=== PATIENT | male | born 1950 | race Caucasian/White ===

== ENCOUNTER 2017-05-17 16:34 | Inpatient (IN) | payer MEDICARE, BC ==
[~2017-05-17] VITALS: Ht 180.3 cm; Wt 95.0 kg
[~2017-05-17 16:34] MED LIST: ALTACE 5MG5 MG PO; ASPIRIN 81M81 MG/TA2 PO; COUMADIN 5MG5 MG/TAB PO; CRESTOR40 MG PO; FISH OIL SUPER1 SGL PO; MULTI VITAMINS1 TAB PO; PEPCID 20MG TAB20 MG PO; QUESTRAN4 GM/9 GM PO; REGLAN 10MG10 MG/TAB PO; TRICOR145 MG PO; VITAMIN C PUR1000 MG PO; VITAMIN E 400 U4001 PO
[2017-05-17] MEDS ORDERED: LIPITOR 80MG80 MG PO (17:38)
[2017-05-17] MEDS ORDERED: COUMADIN 22.5 MG/TAB PO (17:42)
[2017-05-17 17:43] LABS: BASO # 0.1 (0.0-0.2); BASO % 0.7 % (0.0-2.0); EOS # 0.3 (0.0-0.7); EOS % 2.3 % (0-4.0); GRAN # 7.5 (1.4-6.5); GRAN % 65.3 % (42.2-75.2); HEMATOCRIT 48.3 % (42.0-52.0); HEMOGLOBIN 16.2 g/dl (13.5-18.0); LYMPH # 2.4 (1.2-3.4); LYMPH % 20.6 % (20.0-51.0); MEAN CELL VOLUME 90 fl (80.0-100.0); MEAN CORPUSCULAR HEMOGLOBIN 30 pg (27.0-31.0); MEAN CORPUSCULAR HGB CONC 34 g/dl (33.0-37.0); MEAN PLATELET VOLUME 10.6 fl (7.4-10.4); MONO # 1.2 (0.1-0.6); MONO % 10.1 % (1.7-9.3); PLATELET COUNT 243 K/mm3 (130-400); RED BLOOD COUNT 5.36 M/mm3 (4.20-5.60); REDCELL DISTRIBUTION WIDTH-CV 14.7 % (11.5-14.5); WHITE BLOOD COUNT 11.4 K/mm3 (4.8-10.8)
[2017-05-17 18:13] LABS: ALBUMIN 4.4 gm/dL (3.5-5.0); BILIRUBIN,TOTAL 0.7 mg/dL (0.0-1.0); CALCIUM 9.3 mg/dL (8.4-10.2); CREATININE, serum 1.37 mg/dL (0.66-1.25); POTASSIUM 4.7 mmol/L (3.4-5.0); TOTAL PROTEIN 7.9 gm/dL (6.4-8.2)
[2017-05-17] MEDS ORDERED: DEPO-TESTOS100 MG/ML IM (18:22)
[2017-05-17 18:25] LABS: TROPONIN-I 0.03 ng/mL (0.000-0.034)
[2017-05-17 18:34] LABS: INR 3.2 (0.8-3.0); PROTHROMBIN TIME 36.7 SECONDS (9.7-12.8)
[2017-05-17 18:37] LABS: PARTIAL THROMBOPLASTIN TIME 51.4 SECONDS (26.0-37.0)
[2017-05-17] MEDS ORDERED: EPA FISH OIL1 SGL PO (20:57)
[2017-05-17] MEDS ORDERED: VITAMIN C500 MG PO (20:58)
[2017-05-17 20:59] VITALS: BP 160/93; PULSE 68; TEMP 97.5
[2017-05-17] MEDS ORDERED: NATURAL E400 IU PO (20:59)
[2017-05-18 00:46] VITALS: BP 147/78; PULSE 69; TEMP 98.5
[2017-05-18 03:23] VITALS: BP 102/51; PULSE 52; TEMP 97.9
[2017-05-18 07:42] VITALS: BP 126/92; PULSE 58; TEMP 98.1
[2017-05-18 09:18] LABS: INR 2.1 (0.8-3.0); PROTHROMBIN TIME 23.7 SECONDS (9.7-12.8)
[2017-05-18 11:57] VITALS: BP 131/85; PULSE 60; TEMP 98.1
== END 2017-05-18 16:53 | disposition home or self-care (01) | DRG 282 ==
LOC: COL.ER 16:34 → MEDICAL 19:09
PROVIDERS: Emergency Medicine; Internal Medicine Interventional Cardiology
DX: I21.4 Non-ST elevation (NSTEMI) myocardial infarction (principal); I10 Essential (primary) hypertension; I25.10 Atherosclerotic heart disease of native coronary artery without angina pectoris; Z95.1 Presence of aortocoronary bypass graft; Z79.01 Long term (current) use of anticoagulants; F17.210 Nicotine dependence, cigarettes, uncomplicated
CPT/HCPCS: J1940

== ENCOUNTER 2017-05-20 07:01 | Day surgery (SDC) | payer MEDICARE, BC ==
[~2017-05-20] VITALS: Ht 180.3 cm; Wt 92.5 kg
[2017-05-20] VITALS (302 sets, daily range): BP systolic 120–160; BP diastolic 74–108; PULSE 60–98; TEMP 98–98.2; O2SAT 87–100
[~2017-05-20 07:01] MED LIST changes: +COUMADIN 22.5 MG/TAB PO; +DEPO-TESTOS100 MG/ML IM; +EPA FISH OIL1 SGL PO; +LIPITOR 80MG80 MG PO; +NATURAL E400 IU PO; +VITAMIN C500 MG PO
[2017-05-20 07:43] LABS: HEMATOCRIT 51.2 % (42.0-52.0); HEMOGLOBIN 16.9 g/dl (13.5-18.0); MEAN CELL VOLUME 89 fl (80.0-100.0); MEAN CORPUSCULAR HEMOGLOBIN 29 pg (27.0-31.0); MEAN CORPUSCULAR HGB CONC 33 g/dl (33.0-37.0); MEAN PLATELET VOLUME 10.3 fl (7.4-10.4); PLATELET COUNT 242 K/mm3 (130-400); RED BLOOD COUNT 5.75 M/mm3 (4.20-5.60); REDCELL DISTRIBUTION WIDTH-CV 14.8 % (11.5-14.5); WHITE BLOOD COUNT 10.5 K/mm3 (4.8-10.8)
[2017-05-20 07:48] LABS: INR 1.2 (0.8-3.0); PROTHROMBIN TIME 13.2 SECONDS (9.7-12.8)
[2017-05-20 07:55] LABS: CALCIUM 9.1 mg/dL (8.4-10.2); CREATININE, serum 1.21 mg/dL (0.66-1.25); POTASSIUM 4.5 mmol/L (3.4-5.0)
[2017-05-21] VITALS (366 sets, daily range): BP systolic 123–140; BP diastolic 72–87; PULSE 68–76; TEMP 97.3–97.9; O2SAT 79–100
[2017-05-21 04:35] LABS: HEMATOCRIT 47.1 % (42.0-52.0); HEMOGLOBIN 15.6 g/dl (13.5-18.0); MEAN CELL VOLUME 90 fl (80.0-100.0); MEAN CORPUSCULAR HEMOGLOBIN 30 pg (27.0-31.0); MEAN CORPUSCULAR HGB CONC 33 g/dl (33.0-37.0); PLATELET COUNT 215 K/mm3 (130-400); RED BLOOD COUNT 5.24 M/mm3 (4.20-5.60); WHITE BLOOD COUNT 12.3 K/mm3 (4.8-10.8)
[2017-05-21 05:19] LABS: CALCIUM 8.7 mg/dL (8.4-10.2); CREATININE, serum 1.39 mg/dL (0.66-1.25); POTASSIUM 4.5 mmol/L (3.4-5.0)
[2017-05-21] MEDS ORDERED: BRILINTA90 MG PO (08:17)
[2017-05-21] MEDS ORDERED: LOPRESSOR 225 MG/TAB PO (09:10)
== END 2017-05-21 10:58 | disposition home or self-care (01) ==
LOC: COL.CAR 07:01 → ICU 10:15 → COL.CAR 05-21 10:58
PROVIDERS: Internal Medicine Interventional Cardiology
DX: I25.10 Atherosclerotic heart disease of native coronary artery without angina pectoris (principal); E78.5 Hyperlipidemia, unspecified; I25.2 Old myocardial infarction; I10 Essential (primary) hypertension; E11.9 Type 2 diabetes mellitus without complications; N52.9 Male erectile dysfunction, unspecified; F17.290 Nicotine dependence, other tobacco product, uncomplicated; Z79.01 Long term (current) use of anticoagulants; Z95.818 Presence of other cardiac implants and grafts; Z95.1 Presence of aortocoronary bypass graft; Z82.49 Family history of ischemic heart disease and other diseases of the circulatory system
CPT/HCPCS: OP; C1725; C1760; C1769; C1874; C1887; C1894; C9600; J0461; J0583; J2250; J2405; J3010; Q9967

== ENCOUNTER 2017-08-27 14:43 | Outpatient (RCR) | payer MEDICARE, BC ==
[~2017-08-27 14:43] MED LIST changes: +BRILINTA90 MG PO; +LOPRESSOR 225 MG/TAB PO
== END 2017-08-29 | disposition still patient (30) ==
LOC: COL.CR
DX: Z48.812 Encounter for surgical aftercare following surgery on the circulatory system (principal); Z95.1 Presence of aortocoronary bypass graft; Z95.5 Presence of coronary angioplasty implant and graft; I25.10 Atherosclerotic heart disease of native coronary artery without angina pectoris

== ENCOUNTER 2017-09-29 14:21 | Outpatient (RCR) | payer MEDICARE, BC | END 2017-11-28 | disposition home or self-care (01) | LOC: COL.CR | DX: Z48.812 Encounter for surgical aftercare following surgery on the circulatory system (principal); Z95.5 Presence of coronary angioplasty implant and graft; Z95.1 Presence of aortocoronary bypass graft ==

== ENCOUNTER 2021-08-23 13:37 | Emergency (ER) | payer MEDICARE, BC ==
[~2021-08-23] VITALS: Ht 180.3 cm; Wt 86.4 kg
[2021-08-23 14:31] LABS: BASO # 0.1 K/mm3 (0.0-0.2); BASO % 0.3 % (0.0-2.0); EOS # 0.1 K/mm3 (0.0-0.7); EOS % 0.4 % (0.0-4.0); GRAN # 19.9 K/mm3 (1.4-6.5); GRAN % 85.2 % (42.2-75.2); HEMATOCRIT 46.6 % (42.0-52.0); HEMOGLOBIN 15.5 g/dl (13.5-18.0); LYMPH # 1.7 K/mm3 (1.2-3.4); LYMPH % 7.5 % (20.0-51.0); MEAN CELL VOLUME 93 fl (80.0-100.0); MEAN CORPUSCULAR HEMOGLOBIN 31 pg (27-31); MEAN CORPUSCULAR HGB CONC 33 g/dl (33.0-37.0); MEAN PLATELET VOLUME 10.6 fl (7.4-10.4); MONO # 1.4 K/mm3 (0.1-0.6); MONO % 5.8 % (1.7-9.3); PLATELET COUNT 246 K/mm3 (130-400); RED BLOOD COUNT 4.99 M/mm3 (4.20-5.60); REDCELL DISTRIBUTION WIDTH-CV 14.5 % (11.5-14.5)
[2021-08-23 14:46] LABS: ALBUMIN 4.4 gm/dL (3.4-4.8); BILIRUBIN,TOTAL 0.6 mg/dL (0.2-1.2); CALCIUM 9.2 mg/dL (8.4-10.2); CREATININE, serum 1.24 mg/dL (0.72-1.25); POTASSIUM 4.1 mmol/L (3.5-4.5); TOTAL PROTEIN 7.6 gm/dL (6.2-8.1)
[2021-08-23] MEDS ORDERED: CIPRO 500MG TA500 MG PO (15:44)
[2021-08-23] MEDS ORDERED: FLAGYL500 MG PO (15:44)
[2021-08-23] MEDS ORDERED: PERCOCET 325 MG1 TA2 PO (15:45)
[2021-08-23 17:10] VITALS: BP 184/64; PULSE 78; TEMP 98
== END 2021-08-23 17:10 | disposition home or self-care (01) ==
LOC: COL.ER 13:37
PROVIDERS: Personal Emergency Response Attendant
DX: K57.32 Diverticulitis of large intestine without perforation or abscess without bleeding (principal); I10 Essential (primary) hypertension; E78.00 Pure hypercholesterolemia, unspecified; I25.10 Atherosclerotic heart disease of native coronary artery without angina pectoris; Z98.890 Other specified postprocedural states; Z79.01 Long term (current) use of anticoagulants; Z79.82 Long term (current) use of aspirin; Z79.899 Other long term (current) drug therapy
CPT/HCPCS: J1956; J2270; J2405; J7030; Q9967

== ENCOUNTER 2021-08-26 09:42 | Inpatient (IN) | payer MEDICARE, BC ==
[~2021-08-26] VITALS: Ht 177.8 cm; Wt 86.4 kg
[~2021-08-26 09:42] MED LIST changes: +CIPRO 500MG TA500 MG PO; +FLAGYL500 MG PO; +PERCOCET 325 MG1 TA2 PO
[2021-08-26 11:06] LABS: HEMATOCRIT 43.1 % (42.0-52.0); HEMOGLOBIN 14.5 g/dl (13.5-18.0); MEAN CELL VOLUME 91 fl (80.0-100.0); MEAN CORPUSCULAR HEMOGLOBIN 31 pg (27-31); MEAN CORPUSCULAR HGB CONC 34 g/dl (33.0-37.0); MEAN PLATELET VOLUME 10.8 fl (7.4-10.4); PLATELET COUNT 217 K/mm3 (130-400); RED BLOOD COUNT 4.72 M/mm3 (4.20-5.60); REDCELL DISTRIBUTION WIDTH-CV 14.1 % (11.5-14.5)
[2021-08-26 11:20] LABS: ALBUMIN 3.3 gm/dL (3.4-4.8); BILIRUBIN,TOTAL 0.7 mg/dL (0.2-1.2); CREATININE, serum 1.19 mg/dL (0.72-1.25); TOTAL PROTEIN 7.7 gm/dL (6.2-8.1)
[2021-08-26 11:25] LABS: BAND 4 % (0-10); EOSINOPHIL 1 % (0-4); LYMPHOCYTE 2 % (20.0-51.0); NEUTROPHILS 87 % (42.0-75.2); PLATELET ESTIMATE NORMAL (NORMAL)
[2021-08-26] MEDS ORDERED: BYSTOLIC5 MG PO (12:09)
[2021-08-26] MEDS ORDERED: ENTRESTO 49 MG1 EACH PO (12:10)
[2021-08-26] MEDS ORDERED: ENTRESTO 24 MG1 EACH PO (12:12)
[2021-08-26] MEDS ORDERED: BRILINTA60 MG PO (12:13)
[2021-08-26] MEDS ORDERED: CRESTOR40 MG PO (12:13)
[2021-08-26] MEDS ORDERED: REPATHA SU140 MG/1 M SQ (12:17)
[2021-08-26] MEDS ORDERED: CIPRO 500MG TA500 MG PO ×2 (12:18→12:19)
[2021-08-26] MEDS ORDERED: FLAGYL500 MG PO (12:20)
[2021-08-26] MEDS ORDERED: PERCOCET 325 MG1 TA2 PO (12:20)
[2021-08-26 13:28] LABS: INR 4.2 (0.8-3.0)
[2021-08-26 13:32] LABS: PROTHROMBIN TIME 47.2 SECONDS (9.7-12.8)
[2021-08-26 15:13] LABS: COLLECTION METHOD CLEAN CATCH
[2021-08-26 15:25] LABS: MUCOUS Present (NOT PRESENT); PH 5 (5-8); SQUAMOUS EPITHELIAL None Seen /hpf (0-10); URINE APPEARANCE Hazy (CLEAR/HAZY); URINE BACTERIA None Seen /hpf (NONE SEEN); URINE BILIRUBIN Negative (NEGATIVE); URINE BLOOD Negative (NEGATIVE); URINE COLOR Yellow (YELLOW); URINE GLUCOSE Negative (NEGATIVE); URINE KETONE Trace (NEGATIVE); URINE LEUKOCYTE ESTERASE Negative (NEGATIVE); URINE NITRATE Negative (NEGATIVE); URINE PROTEIN(semi-quant) 2+ (NEGATIVE); URINE UROBILINOGEN Negative (NEGATIVE)
[2021-08-26 17:42] VITALS: BP 133/77; PULSE 106; TEMP 97.6
[2021-08-26 20:22] VITALS: BP 105/73; PULSE 103; TEMP 98
[2021-08-26 23:35] VITALS: BP 123/68; PULSE 97; TEMP 98.4
--- NOTE | 2021-08-27 03:18 | NUR ---
ASSESSMENT COMPLETE FOR THIS SHIFT. PT COOPERATIVE WITH CARES. PT RESTING IN BED WATCHING THE GAME. PT DENIES PAIN (AT TIME OF ASSESSMENT), PALPITATIONS, SOB OR DIZZINESS. JUST AFTER MIDNIGHT, PT COMPLAINED OF LOWER ABD/GROIN PAIN, THAT HE RATED AT AN 8. PT GIVEN ROXICODONE FOR PAIN, WHICH BROUGHT HIS PAIN DOWN TO ABOUT A 3, PER PT. WILL CONTINUE TO MONITOR PT'S PAIN. PT STATES HE HAS NO OTHER NEEDS AT THIS TIME. CALL LIGHT WITHIN REACH.
[2021-08-27 03:45] VITALS: BP 134/70; PULSE 93; TEMP 97.4
--- NOTE | 2021-08-27 06:57 | NUR ---
Report received from JADEN Anthony. Patient is sleeping in bed. Call light and bedside table are within reach. Will continue to monitor patient throughout shift.
[2021-08-27 08:00] VITALS: BP 153/84; PULSE 78; TEMP 97.9
[2021-08-27 08:06] LABS: HEMATOCRIT 39.2 % (42.0-52.0); MEAN CELL VOLUME 92 fl (80.0-100.0); MEAN CORPUSCULAR HEMOGLOBIN 30 pg (27-31); MEAN CORPUSCULAR HGB CONC 33 g/dl (33.0-37.0); MEAN PLATELET VOLUME 11.1 fl (7.4-10.4); PLATELET COUNT 225 K/mm3 (130-400); RED BLOOD COUNT 4.28 M/mm3 (4.20-5.60); REDCELL DISTRIBUTION WIDTH-CV 14.4 % (11.5-14.5)
[2021-08-27 08:14] LABS: INR 4.3 (0.8-3.0)
[2021-08-27 08:29] LABS: ALBUMIN 2.8 gm/dL (3.4-4.8); BILIRUBIN,TOTAL 0.5 mg/dL (0.2-1.2); CREATININE, serum 1.24 mg/dL (0.72-1.25); POTASSIUM 3.8 mmol/L (3.5-4.5); TOTAL PROTEIN 6.7 gm/dL (6.2-8.1)
[2021-08-27 08:33] LABS: PROTHROMBIN TIME 48.8 SECONDS (9.7-12.8)
[2021-08-27 09:37] LABS: BAND 1 % (0-10); LYMPHOCYTE 6 % (20.0-51.0); NEUTROPHILS 88 % (42.0-75.2); PLATELET ESTIMATE NORMAL (NORMAL)
[2021-08-27 12:00] VITALS: BP 143/71; PULSE 72; TEMP 98.1
[2021-08-27 13:31] LABS: HEMATOCRIT 38.3 % (42.0-52.0); HEMOGLOBIN 12.8 g/dl (13.5-18.0)
[2021-08-27 15:39] VITALS: BP 124/71; PULSE 75; TEMP 99.3
--- NOTE | 2021-08-27 16:09 | NUR ---
speeder worker met with patient at bedside to discuss discharge plan. Patient reports that he lives alone at his [place] the [place]. Reports that he is fully independent with his activities of daily living and does not utilize any DME to assist with mobility. Reports to having no oxygen needs at home. Patient's PCP is Dr. Varela and he uses [facility] pharmacy in addition to [facility] for medications with no cost difficulty. Patient states he "thinks" he has a [facility] established listing his son Ortega [phone]. Patient is planning on returning home post discharge. Discharge plan: Home
[2021-08-27 19:38] VITALS: BP 133/67; PULSE 77; TEMP 98.2
[2021-08-27 23:35] VITALS: BP 112/57; PULSE 62; TEMP 98
[2021-08-28] VITALS (8 sets, daily range): BP systolic 109–141; BP diastolic 37–71; PULSE 5–68; TEMP 97.5–98.9
--- NOTE | 2021-08-28 03:59 | NUR ---
NOTIFED BY PCT SHAQ THAT PT'S BP IS LOW. PT IS SUPINE IN BED LAYING ON LEFT SIDE. PT IS SLEEPING BUT EASILY AROUSED BY SPEECH. BP RE-CHECKED BY THIS NURSE ET IS 109/43 ON RIGHT ARM. IV ZOSYN INFUSING INTO LEFT ARM. PT DENIES ANY DIZZINESS, STATES THAT HE HAS NOT HAD MUCH TO DRINK TONIGHT THOUGH. PT IS GIVEN ICE WATER ET JUICE. PT INSTRUCTED TO CALL IF HE BEGINS TO FEEL LIGHTHEADED OR DIZZY. Amando SANCHEZ APRN CALLED ET NOTIFIED. NOW NEW ORDERS @ THIS TIME, INSTRUCTED TO NOTIFY PROVIDER IF MAP IS <65.
--- NOTE | 2021-08-28 06:58 | NUR ---
Report received from JADEN Beltran. Patient is resting comfortably in bed. Patient states his pain "is not bad right now." Call light and bedside table are within reach. Will continue to monitor patient throughout shift.
[2021-08-28 07:13] LABS: CALCIUM 8.2 mg/dL (8.4-10.2); CREATININE, serum 0.97 mg/dL (0.72-1.25); POTASSIUM 3.6 mmol/L (3.5-4.5)
[2021-08-28 07:14] LABS: HEMOGLOBIN 11.8 g/dl (13.5-18.0); MEAN CELL VOLUME 92 fl (80.0-100.0); MEAN CORPUSCULAR HEMOGLOBIN 31 pg (27-31); MEAN CORPUSCULAR HGB CONC 33 g/dl (33.0-37.0); MEAN PLATELET VOLUME 10.3 fl (7.4-10.4); PLATELET COUNT 244 K/mm3 (130-400); RED BLOOD COUNT 3.83 M/mm3 (4.20-5.60); REDCELL DISTRIBUTION WIDTH-CV 14.4 % (11.5-14.5)
[2021-08-28 07:16] LABS: HEMATOCRIT 35.4 % (42.0-52.0)
[2021-08-28 07:29] LABS: INR 5.2 (0.8-3.0); PROTHROMBIN TIME 58.1 SECONDS (9.7-12.8)
[2021-08-28 07:58] LABS: BAND 6 % (0-10); EOSINOPHIL 3 % (0-4); LYMPHOCYTE 12 % (20.0-51.0); NEUTROPHILS 74 % (42.0-75.2)
[2021-08-28 07:59] LABS: PLATELET ESTIMATE NORMAL (NORMAL)
--- NOTE | 2021-08-28 08:30 | NUR ---
Patient does not have an SI.
--- NOTE | 2021-08-28 09:00 | NUR ---
Patient continues to c/o hiccups and Dr. Rivera explained the reasons why this can happen and gave him medications to resolve the issue.
--- NOTE | 2021-08-28 10:21 | NUR ---
Initial prayer; Patient thanked Admissions Consultant for looking in on him, visiting and offering God's blessings.
[2021-08-28 16:32] LABS: INR 4.2 (0.8-3.0)
[2021-08-28 16:41] LABS: PROTHROMBIN TIME 46.8 SECONDS (9.7-12.8)
--- NOTE | 2021-08-28 21:15 | NUR ---
Pt. laying in bed. Pt. is A&Ox3 assessment complete. IV to lt. ac patent, IF fluids infusing per orders. Pt. denies pain or other needs, call light within reach.
[2021-08-29 04:24] VITALS: BP 128/57; PULSE 52; TEMP 97.4
[2021-08-29 06:43] LABS: HEMOGLOBIN 11.3 g/dl (13.5-18.0); MEAN CELL VOLUME 95 fl (80.0-100.0); MEAN CORPUSCULAR HEMOGLOBIN 31 pg (27-31); MEAN CORPUSCULAR HGB CONC 33 g/dl (33.0-37.0); MEAN PLATELET VOLUME 10.1 fl (7.4-10.4); PLATELET COUNT 267 K/mm3 (130-400); RED BLOOD COUNT 3.68 M/mm3 (4.20-5.60); REDCELL DISTRIBUTION WIDTH-CV 14.4 % (11.5-14.5)
[2021-08-29 06:46] LABS: HEMATOCRIT 34.8 % (42.0-52.0)
[2021-08-29 07:05] LABS: CALCIUM 8.3 mg/dL (8.4-10.2); CREATININE, serum 0.93 mg/dL (0.72-1.25); POTASSIUM 3.9 mmol/L (3.5-4.5)
[2021-08-29 07:16] VITALS: BP 111/53; PULSE 52; TEMP 97.5
[2021-08-29 07:44] LABS: BAND 8 % (0-10); EOSINOPHIL 4 % (0-4); LYMPHOCYTE 15 % (20.0-51.0); METAMYELOCYTE 3 % (0-0); NEUTROPHILS 60 % (42.0-75.2); PLATELET ESTIMATE NORMAL (NORMAL)
[2021-08-29 08:19] LABS: INR 2.5 (0.8-3.0); PROTHROMBIN TIME 27.5 SECONDS (9.7-12.8)
[2021-08-29] MEDS ORDERED: COUMADIN 2MG2 MG/TAB PO ×3 (08:47→09:10)
[2021-08-29] MEDS ORDERED: PROTONIX 40MG T40 MG PO (08:47)
--- NOTE | 2021-08-29 09:35 | NUR ---
Hospitalist rounded. Discharge orders obtained. Patient tolerated breakfast. Denies reports of pain this am. Will give dose of zosyn & plan for discharge.
--- NOTE | 2021-08-29 12:12 | NUR ---
All discharge paperwork reviewed. Patient tolerated low fiber lunch. Int Dc. We reviewed all follow up appt & labs. New scripts reviewed. Patient upset about coumadin. I did let him know of last dose taken & new scripts. Patient to shower and then ready to get home.
--- NOTE | 2021-08-29 13:06 | NUR ---
Patient ambulated out with all belongings. denies questions or concerns. Glad to get home.
== END 2021-08-29 13:07 | disposition home or self-care (01) | DRG 872 ==
LOC: COL.ER 09:42 → SURG 16:54
PROVIDERS: Physician Assistant; ADMIT Internal Medicine
DX: A41.9 Sepsis, unspecified organism (principal); K57.20 Diverticulitis of large intestine with perforation and abscess without bleeding; E87.1 Hypo-osmolality and hyponatremia; K92.1 Melena; D68.2 Hereditary deficiency of other clotting factors; K40.30 Unilateral inguinal hernia, with obstruction, without gangrene, not specified as recurrent; I10 Essential (primary) hypertension; E78.5 Hyperlipidemia, unspecified; I25.10 Atherosclerotic heart disease of native coronary artery without angina pectoris; F17.210 Nicotine dependence, cigarettes, uncomplicated; E83.52 Hypercalcemia; N40.0 Benign prostatic hyperplasia without lower urinary tract symptoms; R04.0 Epistaxis; K64.9 Unspecified hemorrhoids; Z20.822 Contact with and (suspected) exposure to COVID-19; Z79.01 Long term (current) use of anticoagulants; Z79.82 Long term (current) use of aspirin; Z86.73 Personal history of transient ischemic attack (TIA), and cerebral infarction without residual deficits; Z95.5 Presence of coronary angioplasty implant and graft; Z95.1 Presence of aortocoronary bypass graft; Z23 Encounter for immunization
CPT/HCPCS: 99223-AI; 99232-AI; 99233-AI; 99239; J1170; J2405; J2543; J3010; J3230; J7030; Q9967

== ENCOUNTER 2022-04-14 20:02 | Emergency (ER) | payer MEDICARE, BC ==
[~2022-04-14 20:02] MED LIST changes: +BRILINTA60 MG PO; +BYSTOLIC5 MG PO; +COUMADIN 2MG2 MG/TAB PO; +ENTRESTO 24 MG1 EACH PO; +ENTRESTO 49 MG1 EACH PO; +PROTONIX 40MG T40 MG PO; +REPATHA SU140 MG/1 M SQ
== END 2022-04-14 20:10 | disposition left against medical advice (07) ==
LOC: COL.ER 20:02
DX: R69 Illness, unspecified (principal)

== ENCOUNTER 2022-04-19 11:36 | Emergency (ER) | payer MEDICARE, BC ==
[~2022-04-19] VITALS: Ht 177.8 cm; Wt 81.8 kg
[2022-04-19 11:45] VITALS: TEMP 98
[2022-04-19 12:17] LABS: HEMATOCRIT 49.3 % (42.0-52.0); HEMOGLOBIN 16.7 g/dl (13.5-18.0); MEAN CELL VOLUME 89 fl (80.0-100.0); MEAN CORPUSCULAR HEMOGLOBIN 30 pg (27-31); MEAN CORPUSCULAR HGB CONC 34 g/dl (33.0-37.0); MEAN PLATELET VOLUME 10.4 fl (7.4-10.4); PLATELET COUNT 320 K/mm3 (130-400); RED BLOOD COUNT 5.56 M/mm3 (4.20-5.60)
[2022-04-19 12:26] LABS: ALBUMIN 3.4 gm/dL (3.4-4.8); BILIRUBIN,TOTAL 0.6 mg/dL (0.2-1.2); CALCIUM 9.8 mg/dL (8.4-10.2); CREATININE, serum 1.15 mg/dL (0.72-1.25); POTASSIUM 4.1 mmol/L (3.5-4.5); TOTAL PROTEIN 8.2 gm/dL (6.2-8.1)
[2022-04-19 12:31] LABS: TROPONIN-I 0.025 ng/mL (0.00-0.033)
[2022-04-19 13:28] LABS: BASOPHIL 1 % (0-2); LYMPHOCYTE 26 % (20.0-51.0); METAMYELOCYTE 1 % (0-0); NEUTROPHILS 64 % (42.0-75.2); PLATELET ESTIMATE NORMAL (NORMAL)
[2022-04-19] MEDS ORDERED: ZITHROMAX Z PA250 MG PO ×3 (13:54→14:35)
[2022-04-19] MEDS ORDERED: NORCO 325 MG-51 TAB PO ×3 (13:54→14:35)
[2022-04-19 14:59] VITALS: BP 125/85; PULSE 111
== END 2022-04-19 15:15 | disposition home or self-care (01) ==
LOC: COL.ER 11:36
PROVIDERS: Personal Emergency Response Attendant
DX: U07.1 COVID-19 (principal); K62.5 Hemorrhage of anus and rectum
CPT/HCPCS: J0696; J3230; Q9967

== ENCOUNTER → 2022-06-19 | Outpatient (CLI) | payer MEDICARE, BC ==
[~2022-06-19] MED LIST changes: +NORCO 325 MG-51 TAB PO; +ZITHROMAX Z PA250 MG PO
== END ==
LOC: COL.RAD 12:48
DX: M16.0 Bilateral primary osteoarthritis of hip (principal)
CPT/HCPCS: J3301; Q9967

== ENCOUNTER 2023-06-18 14:30 | Emergency (ER) | payer MEDICARE, BC ==
[~2023-06-18] VITALS: Ht 177.8 cm; Wt 86.4 kg
[~2023-06-18 14:30] MED LIST changes: +ENTRESTO 97 MG1 EACH PO; +FERROUS SU325 MG/TAB PO; +FOLIC ACID 40400 MCG PO; +JARDIANCE10; +NEURONTIN100 MG/CAP PO
[2023-06-18 16:23] LABS: COLLECTION METHOD CLEAN CATCH
[2023-06-18 16:35] LABS: URINE APPEARANCE Cloudy (CLEAR/HAZY); URINE COLOR Yellow (YELLOW)
[2023-06-18 16:36] LABS: URINE BLOOD 3+ (NEGATIVE); URINE GLUCOSE 3+ (NEGATIVE); URINE KETONE TRACE (NEGATIVE); URINE NITRATE Positive (NEGATIVE); URINE PROTEIN(semi-quant) 1+ (NEGATIVE); URINE UROBILINOGEN 0.2 E.U/dL (0.2-1.0)
[2023-06-18 16:52] LABS: MUCOUS Present (NOT PRESENT); URINE BACTERIA Moderate /hpf (NONE SEEN); URINE RBC >50 /hpf (0-2)
[2023-06-18 17:12] LABS: HEMATOCRIT 45.1 % (42.0-52.0); HEMOGLOBIN 14.8 g/dl (13.5-18.0); MEAN CELL VOLUME 89 fl (80.0-100.0); MEAN CORPUSCULAR HEMOGLOBIN 29 pg (27-31); MEAN CORPUSCULAR HGB CONC 33 g/dl (33.0-37.0); MEAN PLATELET VOLUME 11.6 fl (7.4-10.4); PLATELET COUNT 195 K/mm3 (130-400); RED BLOOD COUNT 5.05 M/mm3 (4.20-5.60); REDCELL DISTRIBUTION WIDTH-CV 14.7 % (11.5-14.5)
[2023-06-18 17:27] LABS: ALBUMIN 3.9 gm/dL (3.4-4.8); BILIRUBIN,TOTAL 1.5 mg/dL (0.2-1.2); C-REACTIVE PROTEIN 8.24 mg/dL (0.00-0.50); CALCIUM 9.3 mg/dL (8.4-10.2); CREATININE, serum 1.16 mg/dL (0.72-1.25); POTASSIUM 3.9 mmol/L (3.5-4.5); TOTAL PROTEIN 7.3 gm/dL (6.2-8.1)
[2023-06-18 17:40] LABS: ANISOCYTOSIS 1+; BAND 14 % (0-10); LYMPHOCYTE 7 % (20.0-51.0); METAMYELOCYTE 1 % (0-0); NEUTROPHILS 67 % (42.0-75.2); PLATELET ESTIMATE NORMAL (NORMAL)
[2023-06-18] MEDS ORDERED: CIPRO 500MG TA500 MG PO ×2 (19:43)
[2023-06-18 20:06] VITALS: BP 138/74; PULSE 90; TEMP 99.8
[2023-06-19] MEDS ORDERED: CIPRO 500MG TA500 MG PO (11:13)
== END 2023-06-18 20:06 | disposition home or self-care (01) ==
LOC: COL.ER 14:30
PROVIDERS: Nurse Practitioner
DX: N39.0 Urinary tract infection, site not specified (principal); R11.0 Nausea
CPT/HCPCS: J2405; J7030; Q9967